=== PATIENT | female | born 1955 | race Caucasian/White ===

== ENCOUNTER → 2017-07-28 | Outpatient (CLI) | payer OTHER ==
--- NOTE | ~2017-07-28 | MY30 ---
[facility] A Service of [facility] / [facility] RADIOLOGY TEXT RESULTS PATIENT: AMINAH MACEDO LOCATION: [facility] : 57 UNIT #: [id number] AGE: [address]: Jean Claude Cook MD SEX: F ORDER DR: [id number] [address] [address] [id number] O MR#: [id number] Acc #: [id number] NAME: AMINAH MACEDO : 1955 SEX: F STUDY DATE/TIME: 07/28/2017 15:10 UNIT: [facility] ROOM: STUDY DESCRIPTION: MY SCREEN PATRICIA BILAT DIGITAL Attending Physician: Jean Claude Cook Jr., M.D. Referring Physician: Jean Claude Cook Jr., M.D. Ordering Physician: Jean Claude Cook Jr., M.D. Primary Care Physician: Jean Claude Cook Jr., M.D. MEDICAL IMAGING REPORT This report is preliminary unless electronic signature is present. EXAM Bilateral digital screening mammogram with CAD, 07/28/2017. INDICATIONS 62-year-old female for routine screening. No reported problems. No personal history of breast cancer. Family history positive in a sister at age 35. History of skin cancer of the breast. TECHNIQUE CC and MLO views of the breasts were obtained and reviewed with an FDA-approved CAD device. COMPARISON 05/08/2016, 01/11/2015, 08/17/2013. FINDINGS Breast parenchyma is heterogeneously dense with a fibronodular pattern. The pattern is stable but degrades the sensitivity of screening mammography given overall density of both breasts. There is no new dominant nodule or mass in either breast. No new suspicious cluster of microcalcifications. Faint benign calcifications are present. There is a scar marker in the posterior upper outer right breast. IMPRESSION Benign dense mammogram. One year followup recommended. Patients over the age of 40 are entered into a reminder system with target due date for the next mammogram. BIRADS: 2 Benign finding. Dictated by... [facility] A Service of [facility] / [facility] RADIOLOGY TEXT RESULTS PATIENT: AMINAH MACEDO LOCATION: [facility] : 57 UNIT #: [id number] AGE: [address]: Jean Claude Cook MD SEX: F ORDER DR: Ayaan Shepard M.D. THIS IS AN ELECTRONICALLY VERIFIED REPORT Ayaan Shepard M.D. at 07/29/2017 2:31 PM Lindsey TD: 07/29/2017 10:34 JOB #: [id number] MEDICAL IMAGING REPORT Page 1 of 1
== END | disposition home or self-care (01) ==
LOC: SMAM 14:22
DX: Z12.31 Encounter for screening mammogram for malignant neoplasm of breast (principal); Z80.3 Family history of malignant neoplasm of breast; Z85.828 Personal history of other malignant neoplasm of skin
CPT/HCPCS: 80074; G0202